=== PATIENT | female | born 1990 | race Two or more races ===

== ENCOUNTER 2019-07-07 06:07 | Inpatient (IN) | payer OTHER ==
[~2019-07-07] VITALS: Ht 170.2 cm; Wt 57.6 kg
[2019-07-07] VITALS (13 sets, daily range): BP systolic 92–113; BP diastolic 60–70
[2019-07-07] MEDS ORDERED: MICROGESTIN PO (06:51)
[2019-07-07] MEDS ORDERED: [UNRECOGNIZED DRUG - OTHER] PO (06:51)
[2019-07-07] MEDS ORDERED: cefOXitin Sod 2 GM in D5W 110 ML IVPB ONE (07:00)
[2019-07-07] MEDS ORDERED: Midazolam 2mg/2ml Inj ONE (07:16)
--- NOTE | 2019-07-07 07:19 | Pre-Procedure Note/Attestation ---
Pre-Procedure Note/Attestation Complete Prior to Procedure Planned Procedure: not applicable Procedure Narrative: Hysteroscopy, dilation and curettage, abdominal myomectomy Indications for Procedure Pre-Operative Diagnosis: Uterine fibroids Attestation I attest that I discussed the nature of the procedure; its benefits; risks and complications; and alternatives (and the risks and benefits of such alternatives ), prior to the procedure, with the patient (or the patient's legal event representative). I attest that, if there was a reasonable possibility of needing a blood transfusion, the patient (or the patient's legal event representative) was given the [facility] standardized written summary, pursuant to the Marlon Johana Blood Safety Act ([place] Health and Safety Code # 1645, as amended). I attest that I re-evaluated the patient just prior to the surgery and that there has been no change in the patient's H&P, except as documented below: NONE Elvira Faith M.D. Jul 07, 2019 07:19
[2019-07-07] MEDS ORDERED: Ropivacaine 5mg/ml Vial 30ml INJ ONE (07:22)
[2019-07-07] MEDS ORDERED: cefOXitin 2gm Inj ONE (07:22)
[2019-07-07] MEDS ORDERED: Lidocaine 1% 10mg/ml/Epi 0.005mg/ml 30ml vial INJ ONE (07:22)
[2019-07-07] MEDS ORDERED: Bupivacaine 0.5% Inj 30 ml vial INJ ONE (07:22)
[2019-07-07] MEDS ORDERED: Bupivacaine w/Epi 0.5% 30ml Vial INJ ONE (07:22)
[2019-07-07] MEDS ORDERED: Morphine Sulfate PF 10 ML ONE (07:25)
[2019-07-07] MEDS ORDERED: fentaNYL 100 mcg/2 mL IV ONE ×2 (07:25→08:27)
[2019-07-07] MEDS ORDERED: Sterile Water Irrig 1000ml IRRIG ONE (07:30)
[2019-07-07] MEDS ORDERED: LR 1000ml ONE (07:30)
[2019-07-07] MEDS ORDERED: NS Irrig 1000ml IRRIG ONE (08:15)
[2019-07-07] MEDS ORDERED: Propofol 200mg/20ml IV ONE (08:52)
[2019-07-07] MEDS ORDERED: Metoclopramide 10mg/2ml Inj ONE (08:52)
[2019-07-07] MEDS ORDERED: Lidocaine 1% MPF 10mg/ml 5ml ONE (08:52)
[2019-07-07] MEDS ORDERED: DiphenhydrAMINE 50mg/ml Inj ONE (09:00)
[2019-07-07] MEDS ORDERED: Hydromorphone 0.5mg/0.5ml inj IVP PRN (09:00)
[2019-07-07] MEDS ORDERED: fentaNYL 100 mcg/2 mL IV PRN (09:00)
[2019-07-07] MEDS ORDERED: Metoclopramide 10mg/2ml Inj IVP PRN ×2 (09:00→10:45)
[2019-07-07] MEDS ORDERED: DiphenhydrAMINE 50mg/ml Inj IVP PRN (09:00)
[2019-07-07] MEDS ORDERED: Interceed TOPIC ONE (09:12)
[2019-07-07] MEDS ORDERED: Ketorolac 30mg Inj ONE (09:43)
--- NOTE | 2019-07-07 10:04 | Brief Operative Note ---
Immediate Post Operative Note Operative Note Chief Complaint: Uterine fibroids Pre-op Diagnosis: Uterine fibroids Procedure: Hysteroscopy, dilation and curettage, abdominal myomectomy Post-op Diagnosis: Uterine fibroids Post-op Diagnosis: same as pre-op Findings: consistent w/pre-op dx studies Surgeon: Elvira Faith MD Boat Puller: Lynsey Street MD Anesthesiologist: Lucinda East Anesthesia: general Specimen: yes - Endometrial curettings, uterin fibroids Complications: none Condition: stable Fluids: 2000ml crystalloid Estimated Blood Loss: volume - 250ml Drains: other - Morocho catheter Implant(s) used?: No Elvira Faith M.D. Jul 07, 2019 10:04
--- NOTE | 2019-07-07 10:05 | Operative Note - PDOC ---
Operative Note Operative Note Date of Operation/Procedure: Jul 07, 2019 Chief Complaint: Uterine fibroids Pre-op Diagnosis: Uterine fibroids Procedure: Hysteroscopy, dilation and curettage, abdominal myomectomy Post-op Diagnosis: Uterine fibroids Post-op Diagnosis: same as pre-op Operative Findings: consistent w/pre-op dx studies Surgeon: Elvira Faith MD Material Distributor: Lysney Street MD Anesthesiologist: Lucinda De León Anesthesia: general Specimen: yes - Endometrial curettings, uterin fibroids Complications: none Condition: stable Fluids: 2000ml crystalloid Estimated Blood Loss: volume - 250ml Drains: other - Morocho catheter Implant(s) used?: No Indications for Procedure Uterine fibroids with bulk symptoms Description of Procedure The R/B/A of the procedure were discussed with the patient and informed consent was obtained. The patient was taken to the operating room with IV in place. Spinal anesthesia was administered without difficulty. SCD stockings were in place. General anesthesia was administered without difficulty. The patient was placed in dorsal lithotomy and then prepped and draped in the usual sterile fashion. Morocho catheter was placed. A time out was performed to verify patient and procedure. A bivalve speculum was inserted into the vagina. The anterior lip of the cervix was grasped with a single-toothed tenaculum. The cervix was sequentially dilated to accommodate the diagnostic hysteroscope. The hysteroscope was inserted and the uterine cavity was visualized and appeared normal. Bilateral ostia were visualized and appeared normal. The endometrial lining appeared thin and no other abnormalities were noted. The hysteroscope was withdrawn and fractional curettage was performed. The uterus was sounded to 7cm. A uterine manipulator was placed, stabilized, and attention was then turned to the abdomen. A 7cm Pfannenstiel incision was made with the scalpel. This was carried down through the subcutaneous tissue to the fascia with the bovie. The fascia was incised at the midline and extended laterally with the bovie. The fascia was from the underlying rectus tissue superiorly and inferiorly using blunt dissection and with the bovie. The peritoneum was identified, entered bluntly and stretched, with care being taken to identify and avoid the bladder. The Hoang retractor was placed and stabilized without complication. The uterus was inspected and the uterine fibroids were palpated. There was a large ~12-13cm right fundal pedunculated fibroid noted. The fibroid was grasped and elevated to the level of the incision and the base of the fibroid was injected with dilute vasopressin. The fibroid was sequentially resected and ultimately removed at its base. Once removed, the myometrium and serosa were reapproximated using Vicryl suture. There were 2 small pedunculated fibroids (1-2cm) on the mid-anterior surface of the uterus, one on the left and one on the right. These fibroids were amputated and the underlying serosa was reapproximated with Vicryl suture. The uterus was inspected and a posterior superficial intramural fibroid was noted, measuring approximately 4cm. Dilute vasopressin was injected and the overlying serosa and myometrium were incised. The fibroid was removed in its entirety at its base. The myometrium and serosa were reapproximated with Vicryl suture. The uterus was inspected for hemostasis. Figure of eight sutures were used to obtain excellent hemostasis. The abdomen was irrigated with saline. The uterus was again inspected and noted to be hemostatic. The Hoang retractor was removed without incident. A manual and visual sweep was performed. Interceed was placed over the uterus as an adhesion barrier. The anterior peritoneum was closed with running suture of 2-0 Vicryl and the rectus muscles were reapproximated with interrupted mattress sutures of 2-0 Vicryl. Excellent hemostasis was noted. The fascia was closed with running 0-Vicryl. The subcutaneous layer was irrigated, all bleeding vessels were cauterized, and then closed with running 3-0 Plain suture. The skin was closed with 4-0 Moncryl in a subcuticular fashion. Steri strips and a pressure dressing were applied. Attention was turned to the vagina and the uterine manipulator was removed. All instrument, sponge, and needle counts were correct x 3. The patient was brought to the recovery room in stable condition. I was present and participated in all parts of the procedure. Elvira Faith M.D. Jul 07, 2019 10:05
[2019-07-07] MEDS ORDERED: Acetaminophen (Non formulary) 100 ML IV ONE (10:15)
--- NOTE | 2019-07-07 10:19 | Immediate Post-Op Evaluation ---
Immediate Post-Op Evalulation Immediate Post-Op Evalulation Procedure: D&C; open abd Myomectomy Date of Evaluation: Jul 07, 2019 Time of Evaluation: 10:18 IV Fluids: 2000 Blood Products: 0 Estimated Blood Loss: 250 Urinary Output: 175 Blood Pressure Systolic: 100 Blood Pressure Diastolic: 66 Pulse Rate: 100 Respiratory Rate: 14 O2 Sat by Pulse Oximetry: 98 Temperature (Fahrenheit): 97.4 Nausea: No Vomiting: No Complications none Patient Status: awake, reacts, patent Hydration Status: adequate Drug: cefoxitin Given Within 1 Hr of Incision: Yes Time Given: 07:35 Lucinda Collins CRNA Jul 07, 2019 10:19
--- NOTE | 2019-07-07 10:33 | Anethesia Preoperative Eval ---
Anesthesia Pre-op PMH/ROS General Date of Evaluation: Jul 07, 2019 Time of Evaluation: 07:30 Anesthesiologist: tommy ASA Score: ASA 1 Mallampati Score Class I : Soft palate, uvula, fauces, pillars visible Class II: Soft palate, uvula, fauces visible Class III: Soft palate, base of uvula visible Class IV: Only hard plate visible Mallampati Classification: Class II Surgeon: Vianney Diagnosis: Uterine fiborids Surgical Procedure: Abd open myomectomy Anesthesia History: none Family History: no anesthesia problems Allergies: Coded Allergies: No Known Allergies (Unverified , 07/05/19) Medications: see eMAR Patient NPO?: Yes NPO Date: Jul 06, 2019 NPO Time: 1999 Past Medical History Cardiovascular: Denies: HTN, CAD, DE, valve dz, arrhythmia, other Pulmonary: Denies: asthma, COPD, BOB, other Gastrointestinal/Genitourinary: Denies: GERD, CRI, ESRD, other Neurologic/Psychiatric: Denies: dementia, CVA, depression/anxiety, TIA, other Endocrine: Denies: DM, hypothyroidism, steroids, other HEENT: Denies: cataract (L), cataract (R), glaucoma, [place] (L), [place] (R), other Hematology/Immune: Denies: anemia, DVT, bleeding disorder, other Musculoskeletal/Integumentary: Denies: OA, RA, DJD, DDD, edema, other PSxH Narrative: 0ral surgery Anesthesia Pre-op Phys. Exam Physician Exam Last Vital Signs Date Time Temp Pulse Resp B/P (MAP) Pulse Ox O2 Delivery O2 Flow Rate FiO2 07/07/19 10:19 100 14 98 07/07/19 07:08 97.5 102/68 (79) 07/07/19 06:43 Room Air Constitutional: NAD Neurologic: CN 2-12 intact Cardiovascular: RRR Respiratory: CTA Gastrointestinal: S/NT/ND Airway Exam Mallampati Classification 2 Mallampati Score: Class II MO: full ROM: full Dentures: no upper, no lower Anesthesia Pre-op A/P Labs Urine Test Test 07/07/19 06:25 Urine HCG, Qualitative Negative (NEGATIVE) Studies Pre-op Studies: EKG - SR Risk Assessment & Plan Plan: general Spinal Pre-Antibiotics Drug: cefoxitin Given Within 1 Hr of Incision: Yes Time Given: 07:40 Lucinda Collins CORNER BRACE BLOCK MACHINE OPERATOR Jul 07, 2019 10:33
[2019-07-07] MEDS ORDERED: HYDROcodone/Acetamin 5/325 tab ORAL PRN (10:45)
[2019-07-07] MEDS ORDERED: HYDROcodone/Acetamin 10/325 tab ORAL PRN (10:45)
--- NOTE | 2019-07-07 11:30 | NUR ---
NURSE NOTES: Received report from Carey DIAZ. pt a/a/o x4 laying in bed with no signs of distress or other issues at this time. pain 2/10. O2 at 3L via n/c. surgical dressing dry and intact. IV right JERRY gauge #20 running LR @125ml/hr. Morocho cath in place draining well with clear yellow urine. pt's at bedside. call light within reach, bed in lowest position, side rales up x2. I will f/u as needed.
[2019-07-07] MEDS ORDERED: LR 1000ml 1,000 ML IV SCH (11:46)
[2019-07-07] MEDS: Ketorolac 30mg Inj IV SCH ×2 (13:12→18:04)
[2019-07-07] MEDS: Docusate 100mg cap ORAL SCH ×2 (17:41→18:04)
[2019-07-07] MEDS: LR 1000ml 1,000 ML IV SCH (18:36)
--- NOTE | 2019-07-07 19:30 | NUR ---
NURSE NOTES: Received pt from JOE Lynn. AAO x 4, on room air, ambulatory. Surgical site dressing intact and dry with no s/s of infection. IV site intact and running IVF @ 75cc/hr. Morocho intact and draining yellow urine well by gravity. Family member at bedside. Bed locked, lowest position, alarm on, side rails up, call light within reach. Will continue to monitor.
[2019-07-07] MEDS: Hydromorphone 0.5mg/0.5ml inj IVP PRN (21:02)
[2019-07-08] VITALS: BP 97/66
[2019-07-08] MEDS: LR 1000ml 1,000 ML IV SCH ×2 (00:43→13:34)
[2019-07-08] MEDS: Ketorolac 30mg Inj IV SCH ×4 (00:46→18:28)
[2019-07-08] MEDS: Hydromorphone 0.5mg/0.5ml inj IVP PRN ×3 (03:53→13:27)
[2019-07-08 04:00] VITALS: BP 106/67
[2019-07-08 05:44] LABS: BASOPHILS % (AUTO) 0.6 % (0.0-2.0); EOSINOPHILS % (AUTO) 3.3 % (0.0-3.0); HEMATOCRIT 32.5 % (37.0-47.0); HEMOGLOBIN 10.8 G/DL (12.0-16.0); LYMPHOCYTES % (AUTO) 11.6 % (20.0-45.0); MEAN CORPUSCULAR VOLUME 90 FL (80-99); MONOCYTES % (AUTO) 6.1 % (1.0-10.0); NEUTROPHILS % (AUTO) 78.4 % (45.0-75.0); PLATELET COUNT 164 K/UL (150-450); RED CELL DISTRIBUTION WIDTH 11.3 % (11.6-14.8); WHITE BLOOD COUNT 9.8 K/UL (4.8-10.8)
--- NOTE | 2019-07-08 06:33 | NUR ---
NURSE NOTES: Morocho discontinued and pt is able to void urine.
[2019-07-08 06:44] LABS: ANION GAP 8 mmol/L (5-15); BLOOD UREA NITROGEN 14 mg/dL (7-18); CALCIUM 7.8 MG/DL (8.5-10.1); CARBON DIOXIDE 23 MMOL/L (21-32); CHLORIDE 106 MMOL/L (98-107); CREATININE 0.6 MG/DL (0.55-1.30); POTASSIUM 3.6 MMOL/L (3.5-5.1); SODIUM 137 MMOL/L (136-145)
--- NOTE | 2019-07-08 07:30 | NUR ---
NURSE NOTES: Patient is in bed awake and able to verbalize needs. Stable. Denies pain or SOB. Patient states, "I just want to sleep." Patient appears sleepy. Plan of care discussed with patient, verbalized understanding. Patient left in bed in locked and lowest position with call light within reach. WIll continue to monitor.
--- NOTE | 2019-07-08 07:35 | NUR ---
HAND-OFF: Report given to JOE Dickerson.
--- NOTE | 2019-07-08 10:34 | 48 Hour Post Anesthesia Eval ---
Post Anesthesia Evaluation Procedure: D&C; open abd Myomectomy Date of Evaluation: Jul 08, 2019 Time of Evaluation: 10:33 Blood Pressure Systolic: 114 0: 72 Pulse Rate: 76 Respiratory Rate: 20 Temperature (Fahrenheit): 97.6 O2 Sat by Pulse Oximetry: 98 Airway: patent Nausea: No Vomiting: No Pain Intensity: 3 Hydration Status: adequate Cardiopulmonary Status: stable Mental Status/LOC: patient returned to baseline Follow-up Care/Observations: n/a Post-Anesthesia Complications: none Follow-up care needed: N/A Yvan Farrar MD Jul 08, 2019 10:34
[2019-07-08 12:00] VITALS: BP 104/68
--- NOTE | 2019-07-08 13:00 | NUR ---
NURSE NOTES: Patient vomited x1. Patient stated her food made her vomit.
--- NOTE | 2019-07-08 14:32 | NUR ---
NURSE NOTES: Patient vomited x1. Zofran administered as ordered.
[2019-07-08 16:00] VITALS: BP 108/75
--- NOTE | 2019-07-08 16:03 | General Progress Note ---
Progress Note Progress Note GYNECOLOGY PROGRESS NOTE - ID: POD#1 s/p HSC, D&C, abdominal myomectomy Patient is doing well, however has had a headache and some nausea/vomiting which is now well controlled s/p zofran. She has only received Toradol and Dilaudid for pain only, and will start receiving PO pain medications now. She has been voiding, passing gas, and has had a small BM. No dizziness or lightheadedness. She reports a dull headache as well, but otherwise feels well. Vitals reviewed, WNL Exam: Gen: NAD HEENT: OP clear, MMM CV: No tachycardia Pulm: Respirations even/unlabored Abd: Soft, nontender, mildly distended, bandage removed and steri strips c/d/i Perineum: Dry Ext: FROM, no calf TTP Labs: Laboratory Tests Test 07/08/19 04:55 White Blood Count 9.8 K/UL (4.8-10.8) Red Blood Count 3.60 M/UL (4.20-5.40) L Hemoglobin 10.8 G/DL (12.0-16.0) L Hematocrit 32.5 % (37.0-47.0) L Mean Corpuscular Volume 90 FL (80-99) Mean Corpuscular Hemoglobin 30.0 PG (27.0-31.0) Mean Corpuscular Hemoglobin Concent 33.3 G/DL (32.0-36.0) Red Cell Distribution Width 11.3 % (11.6-14.8) L Platelet Count 164 K/UL (150-450) Mean Platelet Volume 8.9 FL (6.5-10.1) Neutrophils (%) (Auto) 78.4 % (45.0-75.0) H Lymphocytes (%) (Auto) 11.6 % (20.0-45.0) L Monocytes (%) (Auto) 6.1 % (1.0-10.0) Eosinophils (%) (Auto) 3.3 % (0.0-3.0) H Basophils (%) (Auto) 0.6 % (0.0-2.0) Sodium Level 137 MMOL/L (136-145) Potassium Level 3.6 MMOL/L (3.5-5.1) Chloride Level 106 MMOL/L (98-107) Carbon Dioxide Level 23 MMOL/L (21-32) Anion Gap 8 mmol/L (5-15) Blood Urea Nitrogen 14 mg/dL (7-18) Creatinine 0.6 MG/DL (0.55-1.30) Estimat Glomerular Filtration Rate > 60 mL/min (>60) Glucose Level 101 MG/DL (74-106) Calcium Level 7.8 MG/DL (8.5-10.1) L Patient is POD#1 s/p HSC, D&C, myomectomy, doing well - If continues to do well tonight, desires D/C home - OK for D/C if no longer with nausea/vomiting and her pain is well controlled, but please call me directly for orders - Patient's has my cell phone number and will contact me with any worsening condition - Return precautions reviewed - Rx provided for Zofran and pain management at home discussed - Call me directly with any questions or concerns - F/U at my office in 2w for post-op check Elvira Faith M.D. Jul 08, 2019 16:03
--- NOTE | 2019-07-08 18:20 | NUR ---
NURSE NOTES: patient ambulating around unit. All safety measures provided.
[2019-07-08] MEDS: Docusate 100mg cap ORAL SCH (18:28)
[2019-07-08 20:00] VITALS: BP 112/67
--- NOTE | 2019-07-08 20:00 | NUR ---
HAND-OFF: Report given to Lucila DIAZ. Patient is stable.
--- NOTE | 2019-07-08 20:01 | NUR ---
NURSE NOTES: Received report from JOE Dickerson. Pt lying in bed, a&ox4, in room air, family member at bedside. No s/s of acute distress & no c/o pain at this time. Surgical dressing C/D/I. IV site intact & H/L'd. PT to be d/c'd to home tonight as ordered. D/C paperwork ready. Will have it signed by pt in a bit. Bed in lowest position, call light within reach. Will continue to monitor.
--- NOTE | 2019-07-08 20:26 | NUR ---
DISCHARGE NOTE: D/C'd pt to home as ordered by . Pt a&ox4, denies pain, nausea & vomiting. D/C instructions carefully explained to pt & was signed. All questions answered. Pt belongings rechecked & signed. Pt refused to be wheeled on wheelchair. Accompanied pt downstairs by & staff.
--- NOTE | 2019-07-09 10:20 | NUR ---
CASE MANAGEMENT: CM review and clinical information (face sheet/ H&P/operative note/DC summary) faxed to [facility] @ [phone]. CERT # [id number]
--- NOTE | 2019-07-11 09:37 | Discharge Summary ---
Discharge Summary Hospital Course Date of Admission Jul 07, 2019 at 06:07 Date of Discharge Jul 08, 2019 at 20:26 Admitting Diagnosis uterine fibroids Reason for Hospitalization: elective surgery HPI Helen Huizar is a 28 year old female who was admitted on Jul 07, 2019 at 06:07 for Uterine Fibroids. Patient was admitted for elective surgery. Procedures s/p 07/07/[address] Faith Hysteroscopy, dilation and curettage, abdominal myomectomy Hospital Course status post surgery course of recovery uneventful initially IV fluids s/p perioperative antibiotic hemodynamic status closely monitored, remained stable incision clean dry and intact pain management was addressed ; pain controlled transitioned to oral analgesic ambulated use of incentive spirometry was encouraged while in the bed tolerated diet , IV fluids discontinued GI prophylaxis provided antiemetics were on board as needed voided freely passed gas, had small BM bowel regimen instituted patient was stable for discharge discharge instructions provided follow up with surgeon in the office as advised FINAL DIAGNOSES 1. Uterine fibroids 2. Hysteroscopy, dilation and curettage, abdominal myomectomy Discharge Medications Continued Medications: [Microgestin/] () 1 TAB PO DA (This prescription has been renewed) Discharge Condition Upon Discharge: stable Discharge Disposition Patient was discharged home Discharge Instructions Discharge Instructions Special Instructions I have been assigned to complete a D/C Summary on this account. I was not involved in the patient management Serena Gentile NP Jul 11, 2019 09:37
== END 2019-07-08 20:26 | disposition home or self-care (01) | DRG 743 ==
LOC: SDSOVERFLO 06:07 → 3E 11:35
PROC: 0UB90ZZ Excision of Uterus, Open Approach (ICD-10-PCS; principal; 2019-07-07 07:30)
PROC: 0UDB7ZZ Extraction of Endometrium, Via Natural or Artificial Opening (ICD-10-PCS; principal; 2019-07-07 07:30)
DX: D25.1 Intramural leiomyoma of uterus (principal); D25.2 Subserosal leiomyoma of uterus; N83.291 Other ovarian cyst, right side
CPT/HCPCS: 36415; 80048; 81025; 85025; 86850; 86900; 86901; 87081; 94003; 94150; J2250; J2405; J2765